=== PATIENT | male | born 1960 | race Caucasian/White ===

== ENCOUNTER 2024-01-07 05:39 | Observation (INO) | payer OTHER ==
[~2024-01-07] VITALS: Ht 182.9 cm; Wt 77.7 kg
[~2024-01-07 05:39] MED LIST: METFORMIN HCL500 MG PO
[2024-01-07] MEDS: CEFAZOLIN SODIUM 2 GM ONE (06:05)
[2024-01-07] MEDS: LACTATED RINGER'S 1,000 ML ONE (06:05)
[2024-01-07] MEDS ORDERED: Vancomycin IV 1 GM VIAL ONE (06:47)
[2024-01-07] MEDS ORDERED: LIDOCAINE 1% W/EPINEPHRINE 20 ML VIAL ONE (06:47)
[2024-01-07] MEDS ORDERED: THROMBIN FOR SOLN 5,000 UNIT VIAL ONE (06:47)
[2024-01-07] MEDS ORDERED: FENTANYL CITRATE/PF 100MCG/2 ML INJ ONE ×2 (07:13→08:53)
[2024-01-07] MEDS ORDERED: LIDOCAINE HCL 2% LOCAL INJ 5 ML SDV VIAL INJ ONE (07:13)
[2024-01-07] MEDS ORDERED: PROPOFOL IV EMULSION 10 MG/ML 20 ML VIAL ONE (07:14)
[2024-01-07] MEDS ORDERED: ACETAMINOPHEN 1000 MG/100 ML 100 ML IV ONE (07:14)
[2024-01-07] MEDS ORDERED: MIDAZOLAM HCL 2 MG/2 ML VIAL ONE (07:14)
[2024-01-07] MEDS ORDERED: KETAMINE HCL INJ 50 MG/ML 10 ML VIAL ONE (07:15)
[2024-01-07] MEDS ORDERED: DEXAMETHASONE SOD PHOS INJ 4 MG/ML SDV ONE (08:09)
[2024-01-07] MEDS ORDERED: ONDANSETRON HCL INJ 2MG/ML 2ML 2 MG/ML VIAL ONE (08:09)
[2024-01-07] MEDS ORDERED: SODIUM CHLORIDE 0.9% 100 ML ONE (08:25)
[2024-01-07] MEDS ORDERED: PHENYLEPHRINE HCL 1% 10 MG/ML VIAL ONE (08:25)
[2024-01-07] MEDS ORDERED: LACTATED RINGER'S 1,000 ML ONE (08:55)
[2024-01-07] MEDS ORDERED: HYDROCODON-ACE1 EA12 PO (09:29)
[2024-01-07] MEDS: LACTATED RINGER'S 1,000 ML IV SCH (09:30)
[2024-01-07] MEDS ORDERED: CARISOPRODOL 350 MG TAB PO PRN (09:30)
[2024-01-07] MEDS ORDERED: ACETAMINOPHEN 325 MG TAB PO PRN (09:30)
[2024-01-07] MEDS ORDERED: PROMETHAZINE HCL (IM) 25 MG/ML VIAL IM PRN (09:30)
[2024-01-07] MEDS ORDERED: ZOLPIDEM TARTRATE 5 MG TAB PO PRN (09:30)
[2024-01-07] MEDS ORDERED: OXYCODONE/ACETAMINOPHEN 5-325 1 EACH TABLET PO PRN (09:30)
[2024-01-07] MEDS ORDERED: MORPHINE SULFATE 5 MG/ML VIAL IM PRN (09:30)
[2024-01-07] MEDS ORDERED: ONDANSETRON HCL INJ 2MG/ML 2ML 2 MG/ML VIAL IV PRN (09:30)
[2024-01-07] MEDS ORDERED: HYDROMORPHONE 2MG/ML IV PRN (09:30)
[2024-01-07] MEDS ORDERED: MAGNESIUM/ALUMINUM/SIMETHICONE 30 ML UDC PO PRN (09:30)
[2024-01-07] MEDS: HYDROCODONE/APAP 7.5MG-325MG 1 EA TAB PO ONE (10:53)
[2024-01-07 12:00] VITALS: BP 132/72; PULSE 65; RESP 17; TEMP 97.8
[2024-01-07 16:25] VITALS: BP 150/76; PULSE 81; RESP 17; TEMP 98.9; O2SAT 100
[2024-01-07] MEDS: METFORMIN HCL 500 MG TAB PO SCH (16:53)
[2024-01-07] MEDS: HYDROCODONE/APAP 7.5MG-325MG 1 EA TAB ONE (16:54)
[2024-01-07 19:43] VITALS: BP 111/62; PULSE 71; RESP 18; TEMP 98.2; O2SAT 96
[2024-01-07 21:00] VITALS: BP 111/62; PULSE 71; RESP 18; TEMP 98.2; O2SAT 96
[2024-01-07] MEDS ORDERED: DEXTROSE 50% SYRINGE 50 ML IV PRN (21:00)
[2024-01-07] MEDS: INSULIN LISPRO 100 UNIT/1 ML 3ML VIAL SQ SCH (21:47)
[2024-01-07 23:45] VITALS: BP 113/65; PULSE 99; RESP 18; TEMP 98.2; O2SAT 97
[2024-01-08 03:42] VITALS: BP 124/75; PULSE 71; RESP 18; TEMP 98.3; O2SAT 98
[2024-01-08 09:00] VITALS: BP 118/75; PULSE 74; RESP 18; TEMP 98.9; O2SAT 98
[2024-01-08 09:10] VITALS: BP 118/75; PULSE 74; RESP 18; TEMP 98.9; O2SAT 99
== END 2024-01-08 10:10 | disposition home or self-care (01) ==
LOC: OR 05:39 → PACU V 09:28 → MED/SURG3 12:15
PROVIDERS: ADMIT Neurological Surgery; ATTEND Neurological Surgery
DX: M48.062 Spinal stenosis, lumbar region with neurogenic claudication (principal); E11.9 Type 2 diabetes mellitus without complications; Z79.84 Long term (current) use of oral hypoglycemic drugs; F17.200 Nicotine dependence, unspecified, uncomplicated; Z96.642 Presence of left artificial hip joint
CPT/HCPCS: 36415 ×2; 63047; 63048; 72020; 82948 ×2; 86850; 86900; 88304; 88311; G0378 ×2; J0131; J0690 ×3; J1100; J2003; J2250; J2371; J2405; J2704; J3010; J3370; J7050; J7121